=== PATIENT | female | born 1980 | race Two or more races ===

== ENCOUNTER → 2021-01-29 12:00 | Outpatient (CLI) | payer SELFPAY ==
--- NOTE | 2021-01-29 12:00 | EMB_PTH ---
PATIENT: ALEX MUJICA LOC: [facility] U#:[id number] AGE/SX: 44/F ROOM: RE01/29/[address]: Dr. George Joiner MD : 1980 BED: DIS: SPEC #: [id number] RECD: 01/30/21 11:01 STATUS: AVA TONE #: [id number] OLU: 01/29/21 12:[address]: George Joiner DEPT: SURGICAL PATHOLOGY RECD BY: Keshia Brock Tissues: Endometrium, NOS Procedures: Surgery Specimen Level IV HEADER OPERATION: Endometrial biopsy PRE-OP DIAGNOSIS: Menorrhagia TISSUE SUBMITTED: Endometrial biopsy MICROSCOPIC DIAGNOSIS Endometrial biopsy: Proliferative endometrium. SJ:kymberly 01/31/2021 MICROSCOPIC DESCRIPTION Slides are reviewed. GROSS DESCRIPTION Received in fixative is one container labeled with the patient's name and designated EM biopsy. The specimen consists of multiple fragments of pink hemorrhagic soft tissue that in aggregate measure 1.5 x 0.5 x 0.1 cm. The specimen is totally submitted in one cassette. / RAJAN:kymberly 01/30/21 TC:4 CPT: 02992
[2021-02-01 17:06] LABS: HPV Reflexed? NOT INDICATED
== END ==
PROVIDERS: Visit Provider Obstetrics & Gynecology
DX: N92.0 Excessive and frequent menstruation with regular cycle (principal); Z12.4 Encounter for screening for malignant neoplasm of cervix
CPT/HCPCS: 88175; 88305; G0145